=== PATIENT | female | born 1965 | race Caucasian/White ===

== ENCOUNTER 2017-05-30 09:30 | Emergency (ER) | payer BC ==
[~2017-05-30] VITALS: Ht 165.1 cm; Wt 104.3 kg
[~2017-05-30 09:30] MED LIST: ALBU8HFA4 INH; ESTR2TAB5 PO; FLUT1DIS27 IH; METF850T2 PO; [UNRECOGNIZED DRUG - CODE] VG
[2017-05-30] MEDS ORDERED: MONT10TA22 PO (09:52)
[2017-05-30] MEDS ORDERED: BUPR300T52 PO (09:52)
[2017-05-30] MEDS ORDERED: ASPIRIN 81 MG TAB.CHEW PO ONE (10:00)
[2017-05-30] MEDS ORDERED: IBUPROFEN 600 MG TABLET PO ONE (10:00)
[2017-05-30 10:19] LABS: BASOPHILS # (AUTO) 0.1 K/uL (0.0-8.0); BASOPHILS % (AUTO) 1.3 % (0.0-2.0); EOSINOPHILS # (AUTO) 0.2 K/uL (0.0-0.7); EOSINOPHILS % (AUTO) 2.5 % (0.0-7.0); HEMATOCRIT 38.4 % (31.2-41.9); LYMPHOCYTES # (AUTO) 1.3 K/uL (20.0-40.0); LYMPHOCYTES % (AUTO) 21.4 % (20.5-51.5); MEAN CORPUSCULAR HEMOGLOBIN 29.4 uug (24.7-32.8); MEAN CORPUSCULAR HGB CONC 34 g/dL (32.3-35.6); MEAN CORPUSCULAR VOLUME 86.7 fL (75.5-95.3); MONOCYTES # (AUTO) 0.4 K/uL (2.0-10.0); MONOCYTES % (AUTO) 6.3 % (0.0-11.0); NEUTROPHILS # (AUTO) 4.3 K/uL (1.8-8.9); NEUTROPHILS % (AUTO) 68.5 % (38.5-71.5); PLATELET COUNT (AUTO) 197 K/uL (179-408); RED BLOOD CELL COUNT(AUTO) 4.42 MIL/uL (3.63-4.92); WHITE BLOOD COUNT (AUTO) 6.3 K/uL (3.8-11.8)
--- NOTE | 2017-05-30 10:22 | NUR ---
PATIENT WAS SEEN BY DR GOODMAN FOR C/O CHEST DISCOMFORT SINCE 8 AM. EKG DONE, LABS DRAWN, XAY DONE. AWAITING TEST RESULTS. PT IS A/A/OX3 IN NO DISTRESS.
[2017-05-30 10:25] LABS: CREATININE 0.9 mg/dL (0.6-1.3); POTASSIUM 4.6 mmol/L (3.5-5.1)
[2017-05-30] MEDS ORDERED: ASPIRIN 81 MG TAB.CHEW ONE (10:25)
[2017-05-30] MEDS ORDERED: IBUPROFEN 600 MG TABLET ONE (10:25)
--- NOTE | 2017-05-30 10:48 | NUR ---
DR GOODMAN WAS AT BEDSIDE SPEAKING TO PATIENT ABOUT TEST RESULTS AND PLAN OF CARE.
--- NOTE | 2017-05-30 10:49 | NUR ---
Patient discharged to home in stable conditon. Written and verbal after care instructions given. Patient verbalizes understanding of instructions.
== END 2017-05-30 10:59 | disposition home or self-care (01) ==
LOC: ER 09:30
DX: M62.838 Other muscle spasm (principal); E28.2 Polycystic ovarian syndrome; J45.909 Unspecified asthma, uncomplicated; Z88.0 Allergy status to penicillin
CPT/HCPCS: 36415; 70030-TC; 71045; 85025; 93005; A4663